=== PATIENT | female | born 2000 | race Caucasian/White ===

== ENCOUNTER → 2019-05-21 | Outpatient (CLI) | payer BC ==
--- NOTE | 2019-05-21 16:10 | Diagnostic Imaging Report ---
INDICATION: Pain and popping in the right shoulder. TIME OF EXAM: 04:07 p.m. FINDINGS: Three views of right shoulder were obtained. Glenohumeral and acromioclavicular alignment are normal. Acromiohumeral space is normal. No fracture or dislocation is seen. IMPRESSION: No acute bony abnormality is detected. Dictated by: Dictated on workstation # [id number]
== END ==
LOC: RAD 15:48
PROVIDERS: ATTEND Nurse Practitioner Family
DX: M25.511 Pain in right shoulder (principal)
CPT/HCPCS: 73030